=== PATIENT | female | born 1930 | race Caucasian/White ===

== ENCOUNTER → 2017-04-19 17:19 | Outpatient (CLI) | payer OTHER ==
[2010-03-18 08:09] VITALS: BMI 22.3
== END | disposition home or self-care (01) ==
LOC: D.MAMMO 16:15
DX: Z12.31 Encounter for screening mammogram for malignant neoplasm of breast (principal)

== ENCOUNTER → 2018-04-22 19:00 | Outpatient (CLI) | payer MEDICARE ==
[2010-03-18 08:09] VITALS: BMI 22.3
== END | disposition home or self-care (01) ==
LOC: D.MAMMO 10:30
DX: Z12.31 Encounter for screening mammogram for malignant neoplasm of breast (principal)

== ENCOUNTER 2019-04-24 09:00 | Outpatient (CLI) | payer MEDICARE ==
[2010-03-18 08:09] VITALS: BMI 22.3
== END 2019-04-24 10:00 | disposition home or self-care (01) ==
LOC: D.MAMMO 09:00
PROVIDERS: ATTEND Family Medicine
DX: Z12.31 Encounter for screening mammogram for malignant neoplasm of breast (principal)

== ENCOUNTER 2020-04-23 10:00 | Outpatient (CLI) | payer MEDICARE ==
[2010-03-18 08:09] VITALS: BMI 22.3
== END 2020-04-23 10:01 | disposition home or self-care (01) ==
LOC: D.MAMMO 10:00
PROVIDERS: ATTEND Family Medicine
DX: Z12.31 Encounter for screening mammogram for malignant neoplasm of breast (principal)